=== PATIENT | female | born 1975 | race Caucasian/White ===

== ENCOUNTER 2017-06-28 11:36 | Emergency (ER) | payer OTHER ==
[~2017-06-28] VITALS: Ht 170.2 cm; Wt 88.0 kg
[~2017-06-28 11:36] MED LIST: TYLENOL #31 TAB PO; ZOFRAN ODT4 MG PO
[2017-06-28 11:46] VITALS: BP 128/82
--- NOTE | 2017-06-28 12:34 | ED HEADACHE COMPLAINT ---
History of Present Illness General Chief Complaint: Facial or Head Injury Stated Complaint: ?CONCUSSION PER PT Vital Signs & Intake/Output Vital Signs & Intake/Output Vital Signs Date Time Temp Pulse Resp B/P B/P Pulse O2 O2 Flow FiO2 Mean Ox Delivery Rate 06/28 1146 97.1 65 18 128/82 98 Room Air ED Intake and Output 06/29 0000 06/28 1200 Intake Total Output Total Balance Patient 194 lb Weight Reconcile Medications No Known Home Medications Triage Note: PT STATES THAT A GLASS BOWL FELL OUT OF THE CABINET WEDNESDAY AND HIT HER IN THE TOP OF THE HEAD, DENIES LOC/LAC BUT STATES THAT SHE DID HAVE A BUMP. PT CALLED HER DOCTOR THIS AM DUE TO HEADACHE AND HE TOLD HER TO COME TO THE ER FOR HEAD CT : No Patient currently breastfeeds: No (Lion CRYSTAL,Tatiana) General Source: patient Exam Limitations: no limitations Allergies Coded Allergies: No Known Allergies (06/28/17) Triage Nurses Notes Reviewed? yes Onset: Abrupt Duration: day(s): Quality/Severity: mild Head Injury Location: temporal Associated Symptoms: gait instability, right facial tingling/numbness HPI: Mrs Nuno is a 41-year-old lady with no PMH who presents with complaints of headache, gait instability and right facial tingling/numbness after trauma to her head on Wednesday. Patient states that a glass bowl fell off the top drawer and hit the right temporal region of her head on Wednesday, no laceration noted for associated loss of consciousness. She woke up and Wednesday with a throbbing headache that has persisted since, minimal relief with ibuprofen, intermittent sensation of numbness/tingling to her right face and gait instability. She also endorses mild phonophobia but denies any photophobia, blurry vision, nausea, vomiting, palpitations, chest pain, shortness of breath, numbness or weakness in any of her extremities. 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 see below for history Surgical History Surgical History: none Family History Hx Contributory? No (Sammy Driver MD) Review of Systems Review of Systems Constitutional: Reports: see HPI. Eyes: Reports: see HPI. Ears, Nose, Throat, Mouth: Reports: no symptoms. Respiratory: Reports: no symptoms. Cardiovascular: Reports: no symptoms. Gastrointestinal/Abdominal: Reports: no symptoms. Genitourinary: Reports: no symptoms. Musculoskeletal: Reports: see HPI. Skin: Reports: no symptoms. Neurological/Psychological: Reports: see HPI. (Sammy Driver MD) Physical Exam Physical Exam General Appearance: no apparent distress, alert, awake, comfortable Head: there is a slight bruise to the right temporal region Eyes: Bilateral: normal appearance, PERRL (weight), EOMI. Ears, Nose, Throat: normal ENT inspection, hearing grossly normal Neck: full range of motion Respiratory: normal breath sounds, no respiratory distress, lungs clear Cardiovascular: regular rate/rhythm Gastrointestinal: normal bowel sounds, soft, non-tender Extremities: normal range of motion, no edema Cranial Nerves: normal hearing, normal speech, PERRL, cranial nerves III through XII intact Coordination/Gait: normal finger to nose, normal gait Motor/Sensory: no motor/sensory deficits Core Measures Sepsis Present: No Sepsis Focused Exam Completed? 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 I have also reviewed all the pertinent lab results and diagnostic results. I agree with the findings and the plan of care as documented in the PA's/HARDWARE DESIGN ENGINEER's documentation. [X] I have reviewed the ED Record and agree with the PA's/HARDWARE DESIGN ENGINEER's documentation. [] Additions or exceptions (if any) to the PAs/HARDWARE DESIGN ENGINEER's note and plan are summarized below: [] (Tatiana Seymour MD) Departure Time of Disposition: 1338 Disposition: HOME OR SELF CARE Clinical Impression Primary Impression: Concussion Referrals: K[place]a CRYSTAL,Juliana Paul APRN (PCP/Family) Additional Instructions: You were seen in the emergency room for postconcussive syndrome. Please follow-up with your PCP within 1 week after discharge. If you experience worsening symptoms, please return to the emergency room for further evaluation. Please contact the neurologist if symptoms persist Prescriptions: Current Visit Scripts No Known Home Medications ([place] CRYSTAL,Sammy)
--- NOTE | 2017-06-28 13:29 | CT SCAN REPORT ---
EXAMINATION: CT HEAD WITHOUT CONTRAST CLINICAL INFORMATION: Right temporal trauma on Wednesday. Facial numbness. Gait instability. COMPARISON: None TECHNIQUE: Contiguous axial imaging was performed from the skull base to vertex without intravenous administration of contrast. DLP: 621 mGy-cm FINDINGS: There is no evidence of acute intracranial hemorrhage or territorial infarction. No abnormal mass effect or midline shift is seen. Jasso to white matter differentiation is well preserved. No extra-axial fluid collections are identified. The ventricles are normal in size. There is no abnormal attenuation within the brain parenchyma. The osseous structures and soft tissues are normal. The mastoid air cells and middle ear cavities are clear. The temporomandibular joints articulate normally. There is moderate inflammatory change within the partially visualized right maxillary sinus with a possible fluid level. IMPRESSION: No acute intracranial pathology. Inflammatory change in the right maxillary sinus, partially visualized.
== END 2017-06-28 13:46 ==
LOC: ERH 11:36
DX: S06.0X9A Concussion with loss of consciousness of unspecified duration, initial encounter (principal); W20.8XXA Other cause of strike by thrown, projected or falling object, initial encounter; Y92.9 Unspecified place or not applicable; Y93.9 Activity, unspecified